=== PATIENT | male | born 2000 | race Caucasian/White ===

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

== ENCOUNTER 2022-12-08 14:53 | Emergency (ER) | payer OTHER, SELFPAY ==
[2022-12-08 15:08] VITALS: BP 96/64; PULSE 79; RESP 16; TEMP 37.8; O2SAT 99
--- NOTE | 2022-12-08 15:44 | ED.URI ---
HPI - URI/Sore Throat General Chief Complaint: Upper Respiratory Infection Stated Complaint: Sinus Time Seen by Provider: 12/08/22 15:45 Source: patient and RN notes reviewed Mode of arrival: ambulatory Limitations: no limitations History of Present Illness HPI Narrative: 22-year-old male presented for complaint of nasal congestion and pressure, headache, and nonproductive cough over the last 2 days. Taking Sudafed and Zyrtec for symptoms. Denies shortness of breath, wheezing, nausea vomiting, fevers or chills. Denies sick contacts. MD elicited complaint: cough Related Data Home Medications Medication Instructions Recorded Confirmed No Home Medications 12/08/22 12/08/22 Allergies Allergy/AdvReac Type Severity Reaction Status Date / Time No Known Allergies Allergy Verified 12/08/22 15:11 Review of Systems Review of Systems: CONSTITUTIONAL: Denies malaise, chills, sweats, fever EYES: Denies visual changes, redness, or discharge ENT: Reports rhinorrhea, congestion, sinus pain, denies otalgia, sore throat CARDIOVASCULAR: Denies chest pain, palpitations, edema RESPIRATORY: Reports cough, post nasal drainage. Denies dyspnea GASTROINTESTINAL: Denies abdominal pain, nausea, vomiting, diarrhea SKIN: Denies rash or itching MUSCULOSKELETAL: Denies myalgia NEUROLOGIC: Reports headache PMFSH Past Medical History Medical History (Updated 12/08/22 @ 16:16 by Tessie Aguilar, MACHINE [employer]PERATIONS SUPERVISOR) No pertinent past medical history Exam Narrative: GENERAL: Mildly ill-appearing, nontoxic no acute distress. HEAD: Normocephalic EYES: PERRLA, conjunctivae clear ENT: Mucous membranes moist. Nasal congestion. Tenderness to frontal and maxillary sinuses . TMs pearly alcazar with dull light reflex bilaterally; no tragal tenderness. Oropharynx erythematous without lesions or exudate, tonsils 1+ no drooling, no hoarseness, no trismus, uvula midline. No tripod positioning, muffled voice, soft palate or pharyngeal wall bulging NECK: Supple. No lymphadenopathy CHEST: Clear to auscultation, breath sounds equal. No wheezing, rhonchi, rales, or stridor. No respiratory distress, speaks in full sentences. HEART: Regular rate and rhythm. No murmur heard. SKIN: Warm, dry, no rash. NEURO: Alert and oriented x3. PSYCH: Normal mood and affect Course Course Emergency Course: Patient is aware of diagnosis, understands and agrees to treatment plan. Anticipatory guidance given. Patient agrees to follow-up as directed and is aware of reasons to seek care at the emergency department. Portions of this record may have been created with voice recognition software Level of Care: Express Care Visit Vital Signs Vital signs: Vital Signs Temperature 100.1 F H 12/08/22 15:08 Pulse Rate 79 12/08/22 15:08 Respiratory Rate 16 12/08/22 15:08 Blood Pressure 96/64 L 12/08/22 15:08 Pulse Oximetry 99 12/08/22 15:08 Oxygen Delivery Room Air 12/08/22 15:08 Temperature 100.1 F H 12/08/22 15:08 Pulse Rate 79 12/08/22 15:08 Respiratory Rate 16 12/08/22 15:08 Blood Pressure 96/64 L 12/08/22 15:08 Pulse Oximetry 99 12/08/22 15:08 Oxygen Delivery Room Air 12/08/22 15:08 reviewed MDM - URI/Sore Throat MDM Narrative Medical decision making narrative: Negative COVID and strep. Discussed physical exam findings. Advised supportive measures and signs/symptoms to go to the ER. Pt is appropriate for outpt treatment and f/u. Differential Diagnosis Differential diagnosis: Likely upper respiratory infection, sinusitis, viral infection, bronchitis and pharyngitis Lab Data Labs: Lab Results 12/08/22 Range/Units 15:30 POC SARS CoV-2 Ag Negative (Negative) Influenza A Screen Negative Reference Range: Negative Influenza B Screen Negative Reference Range: Negative Strep Screen
== END 2022-12-08 16:20 | disposition home or self-care (01) ==
PROVIDERS: Emergency Provider Nurse Practitioner Family; PCP Pediatrics
DX: J06.9 Acute upper respiratory infection, unspecified (principal); Z20.822 Contact with and (suspected) exposure to COVID-19
CPT/HCPCS: 87081; 87426; 87804; 87880; 99213; C9803; G0463

== ENCOUNTER 2023-08-21 17:30 | Emergency (ER) | payer OTHER, SELFPAY ==
[2023-08-21 17:48] VITALS: BP 113/73; PULSE 90; RESP 16; TEMP 37; O2SAT 100
--- NOTE | 2023-08-21 17:59 | ED.URI ---
HPI - URI/Sore Throat General Chief Complaint: Upper Respiratory Infection Stated Complaint: Sinus Source: patient, RN notes reviewed and old records reviewed Mode of arrival: ambulatory Limitations: no limitations History of Present Illness HPI Narrative: 22-year-old male patient presents to [facility] with complaints of cough, congestion, headache, fever, nausea, vomiting it started Friday. Patient taking [id number] medications. Patient states feels slightly improvement today. patient denies chest pain, shortness breath, weakness, fatigue MD elicited complaint: cough and nasal congestion Onset (ago): day(s) (3) Consistency: constant and improved Severity: moderate Description of mucous: yellow Able to tolerate fluids by mouth: Yes Exacerbating factors: nothing Relieving factors: nothing Treatments prior to arrival: cold medicine Related Data Home Medications Medication Instructions Recorded Confirmed No Home Medications 12/08/22 08/21/23 Allergies Allergy/AdvReac Type Severity Reaction Status Date / Time No Known Allergies Allergy Verified 08/21/23 17:34 Review of Systems Constitutional: Constitutional: Reports no additional constitutional complaints, Reports body ache(s), Denies chills, Denies fatigue, Reports fever(s) and Reports headache(s) Eyes: Eyes: Reports no additional eye complaints and Denies blurry vision ENT: Reports system reviewed and no additional complaints, except as documented, Denies vertigo, Denies dizziness, Denies ear discharge, Denies otalgia, Denies facial pain, Denies headache(s), Reports nasal congestion, Reports nasal discharge, Denies sinus pain, Denies sinus pressure and Denies sore throat Cardiovascular: Cardiovascular: Reports no additional cardiovascular complaints, Denies chest pain, Denies chest pain at rest, Denies rapid heart rate and Denies dyspnea Respiratory: Respiratory: Reports no additional respiratory complaints, Denies chest congestion, Reports cough, Denies pain on inspiration, Denies pain with cough and Denies dyspnea Gastrointestinal: Gastrointestinal: Denies abdominal pain, Denies diarrhea, Denies nausea and Denies vomiting Integumentary/Breasts: Skin/Breast: Denies rash Neurologic: Reports system reviewed and no additional complaints, except as documented, Denies vertigo, Denies dizziness and Denies headache(s) Endocrine: Endocrine: Denies fatigue [facility] Past Medical History Medical History No pertinent past medical history Comments At the time of my signature, I reviewed and agree with the nursing past medical, surgical, social, and family history. There is no relevant family history pertinent to the patient complaint. Exam Const: General: cooperative, healthy appearing, no acute distress and well nourished Nutritional Appearance: well nourished Orientation/consciousness: patient oriented x3 Limitations: no limitations HENMT: Head: normal to inspection and normocephalic Ears: external ears normal, TM's normal bilaterally, mastoids normal and Abnormal EAC present Face/Nose/Sinus: normal facial exam Face and sinus: normal facial exam Mouth: Yes Normal oral and palatal mucosa present, Yes oropharynx normal and Yes moist mucous membranes Throat: tonsils normal, uvula midline, posterior oropharynx abnormal erythema and no uvular edema Eyes: General: appearance normal, both eyes and all related structures Sclera: sclerae normal Pupils: Equal, round and reactive pupils present Resp: Effort & Inspection: normal respiratory effort, able to speak in complete sentences, no audible wheezes, no cough, no respiratory distress and no retractions Auscultation: clear to auscultation bilaterally, no crackles, no rales, no rhonchi and no wheezes Cardio: Rate: regular rate Rhythm: regular rhythm Skin: General skin exam: normal color and no rashes or lesions noted Neuro: General: patient oriented x3
== END 2023-08-21 18:05 | disposition home or self-care (01) ==
PROVIDERS: Emergency Provider Registered Nurse; PCP Pediatrics
DX: J10.1 Influenza due to other identified influenza virus with other respiratory manifestations (principal); Z20.822 Contact with and (suspected) exposure to COVID-19
CPT/HCPCS: 87426; 87804; 99213; G0463

== ENCOUNTER 2023-08-31 20:05 | Emergency (ER) | payer OTHER, SELFPAY ==
--- NOTE | ~2023-08-31 | CT_ITS ---
EXAMINATION: CT facial bones wo con DATE: 08/31/2023 21:25 INDICATION: left sided jaw pain, injury . TECHNIQUE: Computed tomography (CT) of the facial bones and maxillofacial region was performed withou t intravenous contrast. Automated exposure control and iterative reconstruction technique were employ ed. The dose-length product was 398.95 mGy-cm. COMPARISON: None. FINDINGS: Soft Tissues: No significant superficial soft tissue swelling. Facial bones: No acute fracture. No lytic or blastic process. Eyes: The globes are intact. The soft tissue planes of the orbits are maintained. Paranasal Sinuses: Bilateral maxillary and right frontal mucosal thickening, the remaining aerated s paces are clear. Foreign Bodies: No radiopaque foreign bodies. Other Findings: None. IMPRESSION: No evidence of acute facial bone fracture. Reviewed, dictated and finalized at location [employer]
[2023-08-31 20:07] VITALS: BP 112/66; PULSE 83; RESP 17; TEMP 36.3; O2SAT 100
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
== END 2023-08-31 23:46 | disposition home or self-care (01) ==
PROVIDERS: Emergency Provider Physician Assistant; PCP Pediatrics
DX: S09.93XA Unspecified injury of face, initial encounter (principal); J01.00 Acute maxillary sinusitis, unspecified; W51.XXXA Accidental striking against or bumped into by another person, initial encounter
CPT/HCPCS: 70486; 99284